=== PATIENT | male | born 1995 | race Caucasian/White ===

== ENCOUNTER 2016-11-25 02:45 | Emergency (ER) ==
[2016-11-25 02:57] VITALS: TEMP 100.4; BMI 28.0
[2016-11-25 03:22] LABS: BILIRUBIN,URINE Negative (NEGATIVE); KETONES,URINE Negative (NEGATIVE); LEUKOCYTE ESTERASE ,URINE Negative (NEGATIVE); NITRITE,URINE Negative (NEGATIVE); PROTEIN,URINE Negative (NEGATIVE); URINE, BLOOD Negative (NEGATIVE)
[2016-11-25 03:23] LABS: ADD URINE MICROSCOPIC NO
[2016-11-25 03:34] LABS: FLU INTERNAL QC INTERNAL QC VALID; RAPID FLU A NEGATIVE (NEGATIVE); RAPID FLU B NEGATIVE (NEGATIVE)
--- NOTE | 2016-11-25 03:44 | ED.PDOC ---
General ED Provider: Dr. LATONYA CALLES-ER Chief Complaint: Fever Stated Complaint: nicki got a fever and my throat is sore Time Seen by Physician: 03:42 Mode of Arrival: Walk-In Information Source: Patient Exam Limitations: No limitations Primary Care Provider: LATONYA CALLES Nursing and Triage Documentation Reviewed and Agree: Yes EENT Complaint Exam - Throat Complaint/Exam Onset/Duration: 24 rhs Symptoms Are: Still present Timimg: Constant Initial Severity: Mild Current Severity: Mild Aggravating: Reports: Eating Alleviating: Reports: Antipyretics Associated Signs and Symptoms: Reports: Fever, Nasal congestion. Denies: Dysphagia, Drooling, Foreign body sensation, Chills, Cough, Wheezing, Hoarseness , Sinus discomfort, Difficulty breathing, Lethargy, Irritability, Decreased activity, Vomiting, Diarrhea, Decreased hearing, Ear drainage Related History: Reports: Similar Episode Uvula Midline: Yes Linda-tonsillar Fluctuence: No Scarlatinaform Rash Present: No Exanthem: Present: Pharynx Stridor Present: No Sinus Tenderness Present: No Tonsillar Hypertrophy Present: No Tonsillar Exudate Present: No Linda-tonsillar Swelling Present: No Adenopathy Present: Yes Splenomegaly Present: No Differential Diagnoses: Pharyngitis Review of Systems - Review Of Systems Constitutional: Reports: Chills, Fever Eyes: Reports: No symptoms Ears, Nose, Mouth, Throat: Reports: Throat pain Respiratory: Reports: No symptoms Cardiac: Reports: No symptoms GI: Reports: No symptoms : Reports: No symptoms Musculoskeletal: Reports: No symptoms Skin: Reports: No symptoms Neurological: Reports: No symptoms Endocrine: Reports: No symptoms Hematologic/Lymphatic: Reports: No symptoms All Other Systems: Reviewed and Negative Past Medical History - Past Medical History Previously Healthy: Yes Endocrine: Reports: Unknown Cardiovascular: Reports: Unknown Respiratory: Reports: Unknown Hematological: Reports: Unknown Gastrointestinal: Reports: Unknown Genitourinary: Reports: Unknown Neuro/Psych: Reports: Unknown Musculoskeletal: Reports: Unknown Cancer: Reports: Unknown - Surgical History General Surgical History: Reports: Unknown - Family History Family History: Reports: Unknown - Social History Smoking Status: Current every day smoker, Heavy tobacco smoker Hx Substance Use: No Alcohol Screening: Occasionally - Immunizations Tetanus Shot up to Date: (UNKNOWN) Physical Exam - Physical Exam Appearance: Well-appearing, No pain distress, Well-nourished Eyes: EMMANUEL ENT: Ears normal, Nose normal, Erythema Neck: Supple Respiratory: Airway patent Cardiovascular: RRR GI/: Soft Musculoskeletal: Normal strength Skin: Warm, Dry, Normal color Neurological: Sensation intact, Motor intact, Reflexes intact, Cranial nerves intact, Alert, Oriented Psychiatric: Affect appropriate, Mood appropriate Critical Care Note - Critical Care Note Total Time (mins): 0 Course - Course Orders, Labs, Meds: Lab Review 11/25/16 11/25/16 03:00 03:00 Urine Color Yellow Urine Clarity Clear Urine pH 7.0 Ur Specific [place] 1.010 Urine Protein Negative Urine Glucose (UA) Negative Urine Ketones Negative Urine Blood Negative Urine Nitrite Negative Urine Bilirubin Negative Urine Urobilinogen 0.2 Ur Leukocyte Esterase Negative Influenza A (Rapid) Negative Influenza B (Rapid) Negative Orders Category Date Time Status MOLECULAR GROUP A STREP Stat LAB 11/25/16 03:00 Results RAPID FLU A/B Stat LAB 11/25/16 03:00 Completed STREP SCREEN Stat LAB 11/25/16 03:00 Results UA [URINALYSIS C & S IF INDICATED] Stat LAB 11/25/16 03:00 Completed Vital Signs: Temp Pulse Resp BP Pulse Ox 11/25/16 02:46 100.4 F H 84 18 148/93 H 98 Departure - Departure Time of Disposition: 03:43 Disposition: HOME SELF-CARE Discharge Problem: Pharyngitis Qualifiers: Pharyngitis/tonsillitis etiology: unspecified etiology Qualified Code(s): J02.9 - Acute pharyngitis, unspecified Instructions: Strep Throat (ED) Condition: Good Pt referred to PMD for follow-up: Yes Additional Instructions: amoxil 500mg tid x 7days--salt water gargles--tylenol for temp--recheck in 48hrs if not better Allergies/Adverse Reactions: Allergies No Known Drug Allergies Adverse Reaction (Verified 11/25/16 02:57) Home Medications: Ambulatory Orders Ibuprofen [Advil] 100 mg PO DAILY 11/25/16 Melatonin 10 mg PO BEDTIME 11/25/16 Disposition Discussed With: Patient
[2016-11-25] MEDS ORDERED: DECADRON 4 MG/ML SDV IM STA (03:45)
[2016-11-25] MEDS ORDERED: ROCEPHIN IM STA (03:45)
[2016-11-25] MEDS ORDERED: LIDOCAINE HCL 1% SDV SUBCUT STA (03:45)
[2016-11-25 04:25] VITALS: BP 126/75
== END 2016-11-25 04:23 | disposition home or self-care (01) ==
LOC: ED 02:45
DX: J02.9 Acute pharyngitis, unspecified (principal); R50.9 Fever, unspecified
CPT/HCPCS: 81001; 87651; 87804; 87880; 96372; 99283

== ENCOUNTER 2017-07-10 04:30 | Emergency (ER) ==
[2017-07-10 04:40] VITALS: BP 135/86; TEMP 98.5; BMI 28.8
[2017-07-10] MEDS ORDERED: DILAUDID IVP STA (05:02)
[2017-07-10] MEDS ORDERED: ZOFRAN 4 MG/2 ML IVP STA (05:02)
--- NOTE | 2017-07-10 05:15 | ED.PDOC ---
General ED Provider: Dr. LATONYA SINCLAIR Chief Complaint: Abdominal Pain Stated Complaint: Awakened this AM with. discomfort in his abdomen which eventually localized in her lower abdomen. States helped a freind move. Yesterday evening ate a sandwich for dinner without nausea then went to a bar to play pool. State the pain intensified and progressed to a 10/10. Slight nausea without emesis. Currently appears unconfortable. Drove himself to ER. Pain significantly worsended wheh attempting to lie back. Has diffuse guarding and rebound tenderness to palpation. BS silent Time Seen by Physician: 04:35 Mode of Arrival: Walk-In Information Source: Patient Exam Limitations: No limitations Primary Care Provider: LATONYA CALLES Nursing and Triage Documentation Reviewed and Agree: Yes Reviewed sepsis parameters & appropriate labs ordered?: Yes System Inflammatory Response Syndrome: Not Applicable Sepsis Protocol: For patient's 13 years and over: Temp is 96.8 and below OR 101 and greater Pulse >90 BPM Resp >20/minute Acutely Altered Mental Status Are patient's symptoms suggestive of a new infection, such as: -Pneumonia -Skin, Soft Tissue -Endocarditis -UTI -Bone, Joint Infection -Implantable Device -Acute Abdominal Infection -Wound Infection -Meningitis -Blood Stream Catheter Infection -Unknown System Inflammatory Response Syndrome: Not Applicable GI Complaint Exam - Abdominal Pain Complaint/Exam Onset: Sudden Symptoms Are: Still present Timing: Constant Initial Severity: Moderate Current Severity: Severe Location of Pain: RLQ Radiates To: Reports: Back, Flank, LLQ Character: Reports: Sharp, Aching, Cramping, Colicky Aggravating: Reports: Movement, Position Alleviating: Reports: Rest Associated Signs and Symptoms: Reports: Decreased appetite, Nausea, Decreased activity Related History: Denies: Similar episode AAA Risk Factors: Reports: None Cardiac Risk Factors: Reports: None Testicular Torsion Risk Factors: Reports: None Surgical Obstruction Risk Factors: Reports: None Related Surgical History: Reports: None Differential Diagnoses: Appendicitis Review of Systems - Review Of Systems Constitutional: Reports: No symptoms Eyes: Reports: No symptoms Ears, Nose, Mouth, Throat: Reports: No symptoms Respiratory: Reports: No symptoms Cardiac: Reports: No symptoms, Lightheadedness GI: Reports: No symptoms, Abdomen distended, Abdominal pain, Poor appetite, Poor fluid intake : Reports: No symptoms Musculoskeletal: Reports: No symptoms Skin: Reports: No symptoms Neurological: Reports: No symptoms Endocrine: Reports: No symptoms Hematologic/Lymphatic: Reports: No symptoms All Other Systems: Reviewed and Negative Past Medical History - Past Medical History Previously Healthy: Yes Endocrine: Reports: Unknown Cardiovascular: Reports: Unknown Respiratory: Reports: Unknown Hematological: Reports: Unknown Gastrointestinal: Reports: Unknown Genitourinary: Reports: Unknown Neuro/Psych: Reports: Unknown Musculoskeletal: Reports: Unknown Cancer: Reports: Unknown - Surgical History General Surgical History: Reports: Unknown - Family History Family History: Reports: Unknown - Social History Smoking Status: Current every day smoker, Heavy tobacco smoker Hx Substance Use: No Alcohol Screening: Occasionally - Immunizations Tetanus Shot up to Date: Yes Physical Exam - Physical Exam Appearance: Ill-appearing Ill-appearing: Severe Pain Distress: Severe Eyes: EMMANUEL, EOMI, Conjunctiva clear ENT: Ears normal, Nose normal, Oropharynx normal Respiratory: Airway patent, Breath sounds clear, Breath sounds equal, Respirations nonlabored Cardiovascular: RRR, Pulses normal, No rub, No murmur GI/: Tender, Bowel sounds hypoactive (diffuse guarding and rebound) Musculoskeletal: Normal strength, ROM intact, No edema, No calf tenderness Skin: Warm, Dry, Pale, Diaphoretic Neurological: Reflexes intact Interpretation - Radiology Interpretation Radiology Interpretation By: Radiologist Radiology Results: No acute changes Exam Interpreted: CT Scan Xray Comments: abdomen and pelvis normal Re-Evaluation - Re-Evaluation Time of Re-Evaluation: 06:50 Status: Improved Vital Signs Stable: Yes Appearance: NAD Lungs: Clear Skin: Warm and Dry Neuro: Alert and Oriented X3 CV: RRR Additional Comments: Explained results of CT scan -no acute abdominal inflamatory findings Critical Care Note - Critical Care Note Total Time (mins): 30 Course - Course Hematology/Chemistry: 07/10/17 05:10 07/10/17 05:10 Orders, Labs, Meds: Lab Review 07/10/17 07/10/17 07/10/17 04:45 05:00 05:10 WBC 15.53 H RBC 5.32 Hgb 16.6 Hct 46.5 MCV 87.4 MCH 31.2 H MCHC 35.7 H RDW Coeff of Case 12.6 Plt Count 253 Immature Gran % (Auto) 0.3 Neut % (Auto) 53.1 Lymph % (Auto) 36.7 [place] % (Auto) 7.7 Eos % (Auto) 1.7 Baso % (Auto) 0.5 Immature Gran # (Auto) 0.0 Neut # (Auto) 8.3 H Lymph # (Auto) 5.7 H [place] # (Auto) 1.2 Eos # (Auto) 0.3 Baso # (Auto) 0.1 Sodium Potassium Chloride Carbon Dioxide Anion Gap BUN Creatinine Estimated GFR (MDRD) BUN/Creatinine Ratio Glucose Calcium Total Bilirubin AST ALT Alkaline Phosphatase Total Protein Albumin Globulin Albumin/Globulin Ratio Lipase 26 Urine Color Yellow Urine Clarity Clear Urine pH 7.0 Ur Specific [place] 1.015 Urine Protein Negative Urine Glucose (UA) Negative Urine Ketones Negative Urine Blood Negative Urine Nitrite Negative Urine Bilirubin Negative Urine Urobilinogen 0.2 Ur Leukocyte Esterase Negative 07/10/17 05:10 WBC RBC Hgb Hct MCV MCH MCHC RDW Coeff of Case Plt Count Immature Gran % (Auto) Neut % (Auto) Lymph % (Auto) [place] % (Auto) Eos % (Auto) Baso % (Auto) Immature Gran # (Auto) Neut # (Auto) Lymph # (Auto) [place] # (Auto) Eos # (Auto) Baso # (Auto) Sodium 140 Potassium 3.0 L Chloride 107 Carbon Dioxide 22 Anion Gap 14.0 BUN 7 Creatinine 0.98 Estimated GFR (MDRD) 98.00 BUN/Creatinine Ratio 7.14 Glucose 90 Calcium 9.5 Total Bilirubin 0.5 AST 18 ALT 28 Alkaline Phosphatase 69 Total Protein 7.2 Albumin 4.0 Globulin 3.2 Albumin/Globulin Ratio 1.25 Lipase Urine Color Urine Clarity Urine pH Ur Specific [place] Urine Protein Urine Glucose (UA) Urine Ketones Urine Blood Urine Nitrite Urine Bilirubin Urine Urobilinogen Ur Leukocyte Esterase Orders Category Date Time Status NPO REMINDER: IMAGING ONCE CARE 07/10/17 05:01 Completed CLEAR LIQUID DIET DIETARY 07/10/17 Breakfast Ordered IV [ED IV/MEDIPORT/POWERPORT] .ONCE EMERGENCY 07/10/17 04:58 Active CBC W/ AUTO DIFF Stat LAB 07/10/17 05:10 Completed CMP [COMPREHENSIVE METABOLIC PANEL] Stat LAB 07/10/17 05:10 Completed LIPASE Stat LAB 07/10/17 05:00 Completed UA [URINALYSIS C & S IF INDICATED] Stat LAB 07/10/17 04:45 Completed 0.9 % Sodium Chloride [Saline Flush] MEDS 07/10/17 05:00 Ordered 1 syr IVF PRN PRN Hydromorphone HCl [Dilaudid] MEDS 07/10/17 05:02 Discontinued 1 mg IVP ONCE STA Ketorolac Tromethamine [Toradol] MEDS 07/10/17 06:46 Stat 30 mg IVP ONCE STA Ondansetron HCl/Pf [Zofran 4 mg/2 ml] MEDS 07/10/17 05:02 Discontinued [address] ABDOMEN/PELVIS W/WO CONTRAS Stat RADS 07/10/17 04:58 Completed Medications Generic Name Dose Route Start Last Admin Trade Name Freq PRN Reason Stop Dose Admin Sodium Chloride 1 syr 07/10/17 05:00 07/10/17 05:11 Saline Flush IVF 1 syr PRN PRN Administration To flush IV Discontinued Medications Generic Name Dose Route Start Last Admin Trade Name Freq PRN Reason Stop Dose Admin Hydromorphone HCl 1 mg 07/10/17 05:02 07/10/17 05:10 Dilaudid IVP 07/10/17 05:03 1 mg ONCE STA Administration Ketorolac Tromethamine 30 mg 07/10/17 06:46 Toradol IVP 07/10/17 06:47 ONCE STA Ondansetron HCl 4 mg 07/10/17 05:02 07/10/17 05:11 Zofran 4 Mg/2 Ml IVP 07/10/17 05:03 4 mg ONCE STA Administration Vital Signs: Temp Pulse Resp BP Pulse Ox 07/10/17 04:31 98.5 F 81 20 135/86 98 Departure - Departure Time of Disposition: 07:20 Disposition: HOME SELF-CARE Discharge Problem: Abdominal pain in male, Abdominal muscle strain Instructions: Acute Abdominal Pain (ED), Muscle Strain (ED) Condition: Good Pt referred to PMD for follow-up: Yes (1 week) IPMP verified?: No Additional Instructions: Discussed findings with patient IV Toradol Instructions for home Do Not Take meds as directed Allergies/Adverse Reactions: Allergies No Known Drug Allergies Adverse Reaction (Verified 07/10/17 04:59) Home Medications: Ambulatory Orders Melatonin 10 mg PO BEDTIME PRN 11/25/16 Ibuprofen 600 mg PO Q6H PRN 07/10/17 Ketorolac Tromethamine [Toradol] 10 mg PO Q6H #20 tablet 07/10/17 Disposition Discussed With: Patient
--- NOTE | 2017-07-10 06:19 | CT ---
Exam: CT of the abdomen and pelvis without and with contrast History: Right lower quadrant abdominal pain Technique: [address] of the abdomen and pelvis pre and post intravenous contrast FINDINGS: The lung bases are clear. No significant liver abnormality. The adrenals, pancreas and spl een are unremarkable. The stomach and hiatus are unremarkable.The gallbladder appears normal. Kidneys and proximal collecting system are unremarkable. The appendix is normal. Bowel loops demonstrate nor mal caliber. No inflamatory change seen in the mesentery or retroperitoneum. Vascular structures appe ar normal. Pelvic genitourinary structures appear normal. Pelvic bowel loops are unremarkable. No inflammatory c hange in the pelvic fat. No acute abnormality of the abdominal or pelvic skeleton. Impression: 1. No inflammatory process, bowel or urinary obstruction is seen. No abnormalities of the abdomen o r pelvis.
[2017-07-10] MEDS ORDERED: TORADOL IVP STA (06:46)
== END 2017-07-10 08:40 | disposition home or self-care (01) ==
LOC: ED 04:30
DX: S39.011A Strain of muscle, fascia and tendon of abdomen, initial encounter (principal); X50.9XXA Other and unspecified overexertion or strenuous movements or postures, initial encounter; F17.210 Nicotine dependence, cigarettes, uncomplicated
CPT/HCPCS: 36415; 80053; 81001; 83690; 85025; 96374; 96375; 99283